=== PATIENT | female | born 1970 ===

== ENCOUNTER 2018-06-25 13:12 | Inpatient (IN) | payer MEDICARE, MEDICAID ==
[2018-06-25 13:12] VITALS: BMI 43.9
--- NOTE | 2018-06-25 13:36 | C.PDOC ---
History Of Present Illness 47 y/o female presents to ED with c/o hearing voices. Patient is not compliant with medication, states "I don't like taking medications and I do not know what will happen if I am discharged". Contrary to triage patient denies abdominal pain or any GI symptoms. Patient denies SI/HI or any other complaints at this time. Time Seen by Provider: 06/25/18 13:14 Chief Complaint (Nursing): Psychiatric Evaluation History Per: Patient History/Exam Limitations: no limitations Onset/Duration Of Symptoms: Days Current Symptoms Are (Timing): Still Present Suicide/Self Injury Attempted (Context): None Past Medical History Reviewed: Historical Data, Nursing Documentation, Vital Signs Vital Signs: Last Vital Signs Temp 99.0 F 06/25/18 13:16 Pulse 100 H 06/25/18 13:16 Resp 18 06/25/18 13:16 BP 111/78 06/25/18 13:16 Pulse Ox 94 L 06/25/18 13:16 - Medical History PMH: Asthma, Bipolar Disorder, Diabetes (type II), Gastritis, HTN, Hyperlipidemia, Hyperthyroidism, Hypothyroidism, Paranoia, Peripheral Edema, Schizophrenia Surgical History: Appendectomy - [facility] GROUP PSYCHOTHERAPY (12/05/15) INDIVIDUAL PSYCHOTHERAPY, BEHAVIORAL (12/05/15) VACCINATION NEC (12/08/14) Family History: States: No Known Family Hx - Social History Hx Tobacco Use: No Hx Alcohol Use: No Hx Substance Use: No - Immunization History Hx Tetanus Toxoid Vaccination: No Hx Influenza Vaccination: Yes Hx Pneumococcal Vaccination: No Review Of Systems Constitutional: Negative for: Fever, Chills Cardiovascular: Negative for: Chest Pain Gastrointestinal: Negative for: Nausea, Vomiting Skin: Negative for: Rash Psych: Positive for: Other (hearing voices). Negative for: Anxiety, Suicidal ideation Physical Exam - Physical Exam Appears: Non-toxic, No Acute Distress, Other Skin: Warm, Dry, No Rash Head: Atraumatic, Normacephalic Eye(s): bilateral: Normal Inspection Oral Mucosa: Moist Neck: Normal ROM, Supple Cardiovascular: Rhythm Regular Respiratory: Normal Breath Sounds, No Rales, No Rhonchi, No Wheezing Gastrointestinal/Abdominal: Soft, No Tenderness, No Guarding, No Rebound Neurological/Psych: Oriented x3, Normal Speech, Normal Cognition, Other (depressed, calm , no active psychosis) ED Course And Treatment - Laboratory Results Result Diagrams: 06/25/18 13:38 06/25/18 13:38 O2 Sat by Pulse Oximetry: 94 (RA) Progress - Re-Evaluation Re-evaluation Note: 06/25/18 14:42 med clear for psych. RECOMMEND MED CONSULT NEEDED FOR HYPOMAGNESIUM - Data Reviewed Data Reviewed: Lab, Old records Disposition Counseled Patient/Family Regarding: Studies Performed, Diagnosis - Disposition Disposition: HOSPITALIZED Disposition Time: 14:42 Condition: STABLE Forms: [facility] (Faroese) - POA Present On Arrival: None - Clinical Impression Clinical Impression: Schizophrenia, Hypomagnesemia - Scribe Statement The provider has reviewed the documentation as recorded by the Euniceibtiera Chung All medical record entries made by the Euniceibtiera were at my direction and personally dictated by me. I have reviewed the chart and agree that the record a ccurately reflects my personal performance of the history, physical exam, medical decision making, and the department course for this patient. I have also personally directed, reviewed, and agree with the discharge instructions and disposition.
[2018-06-25 13:42] LABS: BASO # 0.1 K/uL (0.0-0.2); BASO % 0.6 % (0.0-2.0); EOS % 0.5 % (0.0-4.0); LYMPH # 3.7 K/uL (1.0-4.3); LYMPH % 35.7 % (20.0-40.0); MEAN CORPUSCULAR HEMOGLOBIN 27.1 pg (27.0-31.0); MEAN CORPUSCULAR HGB CONC 33.2 g/dL (33.0-37.0); MEAN PLATELET VOLUME 7.6 fL (7.2-11.7); MONO # 0.9 K/uL (0.0-0.8); NEUT # 5.6 K/uL (1.8-7.0); NEUT % 54.2 % (50.0-75.0); NRBC % 0.1 % (0.0-2.0); RBC 5.67 Mil/uL (3.80-5.20); RED CELL DISTRIBUTION WIDTH 15.3 % (11.5-14.5); WHITE BLOOD COUNT 10.4 K/uL (4.8-10.8)
[2018-06-25 13:44] LABS: HEMOGLOBIN 15.4 g/dL (11.0-16.0); MEAN CELL VOLUME 81.8 fL (81.0-99.0)
[2018-06-25 13:45] LABS: HCG,QUALITATIVE URINE NEGATIVE (NEGATIVE)
[2018-06-25 13:46] LABS: SQUAMOUS EPITHIAL 2 /hpf (0-5); URINE BILIRUBIN NEGATIVE (NEGATIVE); URINE BLOOD 1+ (NEGATIVE); URINE CLARITY Clear (Clear); URINE COLOR Yellow (YELLOW); URINE GLUCOSE (UA) 3+ mg/dL (Normal); URINE LEUKOCYTE ESTERASE NEG Leu/uL (Negative); URINE PROTEIN 1+ mg/dL (NEGATIVE); URINE UROBILINOGEN NORMAL mg/dL (0.2-1.0)
[2018-06-25 14:01] LABS: ALB/GLOB RATIO 1.2 (1.0-2.1); ALBUMIN 4.4 g/dL (3.5-5.0); ALT/SGPT 31 U/L (9-52); AST/SGOT 34 U/L (14-36); BLOOD UREA NITROGEN 13 mg/dL (7-17); CALCIUM 9.4 mg/dl (8.6-10.4); GFR NON-AFRICAN AMERICAN > 60
[2018-06-25] MEDS ORDERED: Magnesium Oxide 400 mg Tab UD PO STA (14:06)
[2018-06-25 15:45] LABS: BARBITURATES, UR NEGATIVE (NEGATIVE); BENZODIAZEPINES, UR NEGATIVE (NEGATIVE); OPIATES, UR NEGATIVE (NEGATIVE); PHENCYCLIDINE, UR NEGATIVE (NEGATIVE)
[2018-06-25 16:33] VITALS: O2SAT 95
--- NOTE | 2018-06-25 18:48 | PCM.BM ---
<He Sharma - Last Filed: 06/25/18 18:45> Treatment Plan Problems - Problems identified on initial assessmt Auditory hallucinations Date Initiated: 06/25/18 Time Initiated: 18:46 Date resolved: 06/25/18 Assessment reference: NA Status: Active Treatment assets and liabiliti Patient Assests: adapts well, cooperative, self-reliant, ADL independent, physically healthy, cognitively intact Patient Liabilities: live alone (Lives alone), dietary restrictions (Hypertention), medical problems (Hypertension, Asthma, Diabetes) - Milieu Protocol Maintain good personal hygiene: daily Encourage regular showers, daily Remind patient to perform daily oral care, every shift Assist patient to perform ADL's Conduct patient checks and document Observation sheet: Q15 minutes (For safety) Maintain personal safety: every shift Educate patient to report safety concerns to staff, every shift Monitor environment for contraband/sharps Medication safety: Monitor for expected outcome, potential side effects: every shift, Assess barriers to learning: every shift, Assess readiness for medication education: every shift <Alejandrina Sutherland - Last Filed: 06/26/18 14:11> Family Contact Family involvement: Patient does not wish Family/SO involvement Family contact: Patient declines to allow family contact at present - Goals for Treatment Patient goals for treatment: "I want to go to a different outpatient program." Discharge/Continuing Care - Education Needs Education Needs: Patient Medication, Patient Diagnosis/Disease Process, Patient Coping Skills, Patient Placement options, Patient Community resources - Discharge Discharge Criteria: Free of Suicidal thoughts, Free of paranoid thoughts, Normal sleep pattern, Ability to care for self, Reduction of target symptoms Discharge to:: Home - Treatment Team Participation Discussed with Family/SO: No Was Patient/Family/SO present at Treatment Team Meeting: Yes <Ignacio Carreon - Last Filed: 07/02/18 12:53> - Diagnosis (1) Schizophrenia Status: Acute Interventions: 06/26/18 12:52 * Assess/adjust medications daily and /or as needed * See patient on an individual basis 7x/week to assess status of hallucinations * Discuss risks, benefits, side effects and alternatives of medications *
--- NOTE | 2018-06-26 14:01 | PCM.PSYCH ---
Initial Psychiatric Evaluation - Initial Psychiatric Evaluation Type of Admission: Voluntary Legal Status: Capacity Current Medications: Active Medications Generic Name Dose Route Start Last Admin Trade Name Freq PRN Reason Stop Dose Admin Albuterol 1 puff 06/26/18 13:52 Ventolin Hfa 90 Mcg/Actuation (8 G) INH RQ4 PRN SOB Aripiprazole 10 mg 06/26/18 18:00 Abilify PO QPM [facility] Aspirin 81 mg 06/26/18 14:00 Aspirin Chewable PO DAILY [facility] Ferrous Sulfate 325 mg 06/26/18 14:00 Feosol PO DAILY [facility] Hydroxyzine HCl 50 mg 06/25/18 22:02 06/25/18 22:09 Atarax PO 50 mg Q6 PRN Administration Anxiety Levothyroxine Sodium 25 mcg 06/27/18 06:30 Synthroid PO DAILY@0630 [facility] Metformin HCl 1,000 mg 06/26/18 18:00 Glucophage PO BID [facility] Pantoprazole Sodium 40 mg 06/26/18 14:00 Protonix Ec Tab PO DAILY [facility] Pneumococcal Polyvalent Vaccine 0.5 ml 06/27/18 10:00 Pneumovax 23 Vaccine IM 06/27/18 10:01 .ONCE ONE Rosuvastatin Calcium 5 mg 06/26/18 22:00 Crestor PO HS [facility] Past Psychiatric History - Past Psychiatric History Pertinent Medical Hx (Current Medical&Sleep Prob, Allergies): Allergies Allergy/AdvReac Type Severity Reaction Status Date / Time Penicillins Allergy RASH Verified 06/25/18 13:18 Docusate [Colace] 200 mg PO HS 12/07/14 Aspirin [Ecotrin] 81 mg PO DAILY 12/05/15 Atorvastatin [Lipitor] 20 mg PO QPM 12/05/15 Benztropine [Cogentin] 1 mg PO DAILY 12/05/15 Divalproex [Depakote DR] 500 mg PO BID 12/05/15 Haloperidol [Haldol] 10 mg PO QAM 12/05/15 Haloperidol [Haldol] 20 mg PO HS 12/05/15 Levothyroxine [Synthroid] 25 mcg PO DAILY 12/05/15 [place]-3 Acid Ethyl Esters [Lovaza] 2 gm PO BID 12/05/15 clonazePAM [Klonopin] 0.5 mg PO BID 12/05/15 hydrOXYzine Pamoate [Vistaril] 50 mg PO BID 12/05/15 Cyclobenzaprine [Cyclobenzaprine HCl] 10 mg PO BID PRN #15 tab 04/04/16 Naproxen [Naprosyn Tab] 375 mg PO BID PRN #15 tab 04/04/16 Gabapentin [Neurontin] 300 mg PO TID #90 cap 04/09/16 Meloxicam [Mobic] 1 tab PO DAILY #20 tab 04/09/16 Cyclobenzaprine [Cyclobenzaprine HCl] 10 mg PO Q8H PRN #12 tab 12/22/16 Naproxen 500 mg PO Q12H PRN #20 ect 12/22/16 Cyclobenzaprine [Cyclobenzaprine HCl] 10 mg PO Q8 PRN #14 tab 08/13/17 Ibuprofen [Motrin] 600 mg PO Q6 PRN #30 tab 08/13/17 Lidocaine 5% [Lidoderm] 1 ea TD DAILY PRN #4 patch 08/13/17
[2018-06-26] MEDS: Pantoprazole 40 mg EC Tab PO SCH (14:27)
[2018-06-27] MEDS: Levothyroxine 25 MCG TAB PO SCH (06:40)
[2018-06-27] MEDS: Pantoprazole 40 mg EC Tab PO SCH (09:00)
[2018-06-27] MEDS ORDERED: Pneumococcal 23-Valent Vaccine IM ONE (10:00)
--- NOTE | 2018-06-27 13:15 | PCM.PYCHPN ---
Psychiatric Progress Note - Psychiatric Progress Note Medication Change: Yes Medical Record Reviewed: Yes Mental Status Examination - Homicidal Ideation Homicidal Ideation: No
[2018-06-27] MEDS: Albuterol HFA 90 mcg/actuation (8 g) INH PRN (21:38)
[2018-06-28] MEDS: Levothyroxine 25 MCG TAB PO SCH (06:25)
[2018-06-28] MEDS: Pantoprazole 40 mg EC Tab PO SCH (09:13)
[2018-06-28] MEDS: Albuterol HFA 90 mcg/actuation (8 g) INH PRN (09:14)
--- NOTE | 2018-06-28 23:36 | PCM.PYCHPN ---
Psychiatric Progress Note - Psychiatric Progress Note Patient seen today, length of contact: 15 minutes Patient Chief Complaint: I am feeling little better. Problems Identified/Issues Discussed: Patient seen, chart reviewed, case discussed with the staff. Issues related to illness and treatment were discussed with the patient and staff. Reported compliant with treatment with no adverse effects. Tolerating treatment very well. Staff reported more social. Awake, alert and oriented x3. Calm and cooperative with good eye contact. Mood reported as okay. Affect appropriate. Needs more time for stabilization. Aftercare discussed with the patient. Denied any delusions, auditory or visual hallucinations, suicidal ideations or homicidal ideations at the time of evaluation. Medical Problems: Obesity Diabetes mellitus Diagnostic Results: Reviewed DSM 5 Symptoms Update: Some improvement with treatment Medication Change: No Medical Record Reviewed: Yes Mental Status Examination - Cognitive Function Orientation: Person, Place, Situation, Time Memory: Intact Attention: WNL Concentration: WNL Association: [facility] Fund of Knowledge: [facility] Decription of patient's judgement and insights: Fair - Mood Mood: Depressed (Less than before) - Affect Affect: Other (Appropriate) - Speech Speech: Appropriate - Formal Thought Process Formal Thought Process: No Impairment Psychotic Thoughts and Behaviors: None - Suicidal Ideation Suicidal Ideation: No - Homicidal Ideation Homicidal Ideation: No Goal/Treatment Plan - Goal/Treatment Plan Need for Continued Stay: Remain at risks for inpatient hospitalization, Discharge may exacerbated symptoms, Severe functional impairment Progress Toward Problem(s) and Goals/Treatment Plan: Some improvement with treatment. Patient education. Supportive therapy. We will continue treatment as before. Patient will go to [facility] for follow-up care after discharge from the hospital. Estimated Date of D/C: 07/01/18 - Smoking Cessation Smoking Cessation Initiated: No Reason for not providing: Patient does not smoke cigarettes.
[2018-06-29] MEDS: Levothyroxine 25 MCG TAB PO SCH (06:31)
[2018-06-29 07:41] VITALS: RESP 20
[2018-06-29] MEDS: Pantoprazole 40 mg EC Tab PO SCH (09:47)
--- NOTE | 2018-06-29 20:52 | PCM.PYCHPN ---
Psychiatric Progress Note - Psychiatric Progress Note Patient seen today, length of contact: 15 minutes Patient Chief Complaint: I am feeling better. Problems Identified/Issues Discussed: Patient seen, chart reviewed, case discussed with the staff. Issues related to illness and treatment were discussed with the patient and staff. Reported compliant with treatment with no adverse effects. Tolerating treatment very well. Staff reported more social. Awake, alert and oriented x 3. Calm and cooperative with good eye contact. Mood reported as okay. Affect appropriate. In the past patient was on long-acting antipsychotic injection, Invega Sustenna and was more stable. Discussed with patient about injection. Patient is agreeable to the injection. Patient will restart Invega Sustenna at [facility] after discharge from the hospital. Needs more time for stabilization. Aftercare discussed with the patient. Denied any delusions, auditory or visual hallucinations, suicidal ideations or homicidal ideations at the time of evaluation. Medical Problems: Obesity Diabetes mellitus Diagnostic Results: Reviewed DSM 5 Symptoms Update: Some improvement with treatment. Medication Change: No Medical Record Reviewed: Yes Mental Status Examination - Cognitive Function Orientation: Person, Place, Situation, Time Memory: Intact Attention: WNL Concentration: WNL Association: [facility] Fund of Knowledge: [facility] Decription of patient's judgement and insights: Fair - Mood Mood: Depressed (Much less than before.) - Affect Affect: Other (Appropriate) - Speech Speech: Appropriate - Formal Thought Process Formal Thought Process: No Impairment Psychotic Thoughts and Behaviors: None - Suicidal Ideation Suicidal Ideation: No - Homicidal Ideation Homicidal Ideation: No Goal/Treatment Plan - Goal/Treatment Plan Need for Continued Stay: Remain at risks for inpatient hospitalization, Discharge may exacerbated symptoms, Severe functional impairment Progress Toward Problem(s) and Goals/Treatment Plan: Some improvement with treatment. Patient education. Supportive therapy. We will continue treatment as before. Patient will go to [facility] for follow-up care after discharge from the hospital. Estimated Date of D/C: 07/01/18 - Smoking Cessation Smoking Cessation Initiated: No Reason for not providing: Patient does not smoke cigarettes.
[2018-06-30] MEDS: Levothyroxine 25 MCG TAB PO SCH (06:16)
[2018-06-30 08:10] VITALS: TEMP 98.2
[2018-06-30] MEDS: Pantoprazole 40 mg EC Tab PO SCH (09:19)
[2018-06-30] MEDS: Albuterol HFA 90 mcg/actuation (8 g) INH PRN (14:47)
[2018-06-30 16:05] VITALS: BP 147/93; PULSE 93
--- NOTE | 2018-06-30 17:29 | PCM.PYCHPN ---
Psychiatric Progress Note - Psychiatric Progress Note Patient seen today, length of contact: 15 minutes Patient Chief Complaint: I am feeling better. Problems Identified/Issues Discussed: Patient seen, chart reviewed, case discussed with the staff. Issues related to illness and treatment were discussed with the patient and staff. Reported compliant with treatment with no adverse effects. Tolerating treatment very well. Staff reported more social. Awake, alert and oriented x 3. Calm and cooperative with good eye contact. Mood reported as okay. Affect appropriate. Needs more time for stabilization. Aftercare discussed with the patient. Denied any delusions, auditory or visual hallucinations, suicidal ideations or homicidal ideations at the time of evaluation. Medical Problems: Obesity Diabetes mellitus Diagnostic Results: Reviewed DSM 5 Symptoms Update: Improving with treatment. Medication Change: No Medical Record Reviewed: Yes Mental Status Examination - Cognitive Function Orientation: Person, Place, Situation, Time Memory: Intact Attention: WNL Concentration: WNL Association: [facility] Fund of Knowledge: [facility] Decription of patient's judgement and insights: Fair - Mood Mood: Depressed (Much less than before.) - Affect Affect: Other (Appropriate) - Speech Speech: Appropriate - Formal Thought Process Formal Thought Process: No Impairment Psychotic Thoughts and Behaviors: None - Suicidal Ideation Suicidal Ideation: No - Homicidal Ideation Homicidal Ideation: No Goal/Treatment Plan - Goal/Treatment Plan Need for Continued Stay: Remain at risks for inpatient hospitalization, Discharge may exacerbated symptoms, Severe functional impairment Progress Toward Problem(s) and Goals/Treatment Plan: Some improvement with treatment. Patient education. Supportive therapy. We will continue treatment as before. Patient will go to [facility] for follow-up care after discharge from the hospital. Estimated Date of D/C: 07/01/18 - Smoking Cessation Smoking Cessation Initiated: No
[2018-07-01] MEDS: Levothyroxine 25 MCG TAB PO SCH (05:39)
[2018-07-01] MEDS: Pantoprazole 40 mg EC Tab PO SCH (09:29)
[2018-07-01] MEDS: Albuterol HFA 90 mcg/actuation (8 g) INH PRN (10:49)
--- NOTE | 2018-07-01 16:54 | PCM.PYCHDC ---
Mental Status Examination - Mental Status Examination Orientation: Person, Place, Situation, Time Description of patient's judgement and insight: Fair Psychotic Thoughts and Behaviors: None Discharge Summary - Discharge Note Laboratory Data: Abnormal Lab Results 07/01/18 07:34 POC Glucose (mg/dL) 146 H Consultations:: List each consultation separately and include: 1. Reason for request. 2. Findings. 3. Follow-up Summary of Hospital Course include:: 1. Description of specific treatment plan utilized for patients during their course of treatmen. 2. Summarize the time- course for resolution of acute symptoms and/or regressed behaviors. 3. Describe issues identified and worked on during hospitalization. 4. Describe medication utilized. 5. Describe medical problems identified and treated. 6. Reassessment of suicide risk - Final Diagnosis (DSM 5) Condition upon Discharge: STABLE Disposition: HOME/ ROUTINE Follow-up Treatment Plan: Some improvement with treatment. Patient education. Supportive therapy. We will continue treatment as before. Patient will go to [facility] for follow-up care after discharge from the hospital. Prescriptions/Medication Reconciliation: ARIPiprazole [Abilify] 10 mg PO QPM #30 tab Benztropine [Cogentin] 1 mg PO BID #60 tab fluPHENAZine [Prolixin] 5 mg PO BID #60 tab traZODone [Desyrel] 50 mg PO HS #30 tab
== END 2018-07-01 12:49 | disposition home or self-care (01) | DRG 885 ==
LOC: C.ER 13:12 → C.9E 14:43 → C.5E 16:01 → C.6T 19:56 → C.5E 20:03
PROVIDERS: ADMIT Psychiatry & Neurology Psychiatry; ATTEND Psychiatry & Neurology Psychiatry
DX: F20.9 Schizophrenia, unspecified (principal); E03.9 Hypothyroidism, unspecified; E11.9 Type 2 diabetes mellitus without complications; E66.9 Obesity, unspecified; E78.5 Hyperlipidemia, unspecified; I10 Essential (primary) hypertension; J45.909 Unspecified asthma, uncomplicated; E83.42 Hypomagnesemia